=== PATIENT | female | born 1995 ===

== ENCOUNTER 2018-06-12 11:36 | Emergency (ER) | payer SELFPAY ==
[2018-06-12] MEDS ORDERED: Sodium Chloride 0.9% 10 ML Syringe FLUSH PRN ×2 (12:11→14:32)
[2018-06-12] MEDS ORDERED: Ondansetron 4 MG/2 ML SDV IVPUSH ONE (12:11)
--- NOTE | 2018-06-12 12:16 | EDM.PDOC ---
ED HPI GENERAL MEDICAL PROBLEM - General Chief Complaint: Abdominal Pain Stated Complaint: ABDOMINAL PAIN Time Seen by Provider: 06/12/18 12:04 Source of Information: Reports: Patient History Limitations: Reports: No Limitations - History of Present Illness INITIAL COMMENTS - FREE TEXT/NARRATIVE: Patient is a 22-year-old female presents ED complaining of lower abdominal pain described as a crampy sensation rated a 7 out of 10. Pain is worsened with eating and also sitting up. She's had issues with passing stool over the past few days. Increased flatulence noted as well. She states with sitting she can only stay stationary for a short period of time. Has to get up and walk and eventually the pain will go away but only to come back. Predominantly the point of maximal pain is to the right lower quadrant. She's been mildly nauseated at times with no emesis. No diarrhea. No blood within her stool. She states with having a bowel movement she does have to strain more than usual. Appetite is poor but diet has significantly changed since moving to [place] from [facility] for one semester of college. She's been eating a lot more noodles and white sauce. Last menstrual cycle was May 16. She has not been sexually active. She has noticed some increased white discharge from her vagina with no bleeding present. Denies any dysuria and/or hematuria. No fever noted. No back pain. No other complaints. Lower Abdominal Pain Score (Numeric/FACES): 7 - Related Data Allergies Allergy/AdvReac Type Severity Reaction Status Date / Time No Known Allergies Allergy Verified 06/12/18 11:59 Home Meds: Home Meds . [No Known Home Meds] 06/12/18 [History] Past Medical History - Past Health History Medical/Surgical History: Denies Medical/Surgical History Social & Family History - Family History Family Medical History: Noncontributory - Tobacco Use Smoking Status *Q: Never Smoker - Caffeine Use Caffeine Use: Reports: None - Recreational Drug Use Recreational Drug Use: No ED ROS GENERAL - Review of Systems Review Of Systems: See Below Constitutional: Reports: Decreased Appetite. Denies: Fever, Chills Respiratory: Reports: No Symptoms Cardiovascular: Reports: No Symptoms GI/Abdominal: Reports: Abdominal Pain, Constipation, Decreased Appetite, Distension, Flatus, Nausea. Denies: Black Stool, Bloody Stool, Diarrhea, Hematemesis, Hematochezia, Melena, Vomiting : Reports: Discharge. Denies: Dysuria, Flank Pain, Frequency, Hematuria, Irregular Menses, Pain, Urgency Musculoskeletal: Reports: No Symptoms Skin: Reports: No Symptoms ED EXAM, GI/ABD - Physical Exam Exam: See Below Exam Limited By: No Limitations General Appearance: Alert, WD/WN, No Apparent Distress Ears: Hearing Grossly Normal Nose: Normal Inspection Throat/Mouth: Normal Voice, No Airway Compromise Neck: Normal Inspection, Supple Respiratory/Chest: No Respiratory Distress, Lungs Clear, Normal Breath Sounds, No Accessory Muscle Use, Chest Non-Tender Cardiovascular: Normal Peripheral Pulses, Regular Rate, Rhythm GI/Abdominal Exam: Normal Bowel Sounds, Soft, No Organomegaly, No Distention, Tender (To the right and left lower quadrant more probably noted on the McBurney 's point with palpation. No Medrano sign. Also some slight discomfort noted to the suprapubic region as well. Very mild.) Back Exam: Normal Inspection. No: CVA Tenderness (L), CVA Tenderness (R) Extremities: Normal Inspection, Normal Range of Motion, Non-Tender, No Pedal Edema, Normal Capillary Refill Neurological: Alert, Oriented, CN II-XII Intact, Normal Cognition Psychiatric: Normal Affect, Normal Mood Skin Exam: Warm, Dry, Intact, Normal Color, No Rash Course - Vital Signs Last Recorded V/S: Last Vital Signs Temp 98.5 F 06/12/18 11:59 Pulse 76 06/12/18 11:59 Resp 18 06/12/18 11:59 BP 114/74 06/12/18 11:59 Pulse Ox 100 06/12/18 11:59 - Orders/Labs/Meds Orders: Active Orders 24 hr Category Date Time Status Peripheral IV Care [RC] . DIRECTED Care 06/12/18 12:11 Active Abdomen 2V AP Flat Upright [CR] Stat Exams 06/12/18 12:11 Taken HCG QUALITATIVE,URINE [URCHEM] Stat Lab 06/12/18 13:14 Ordered WET PREP [MYC] Stat Lab 06/12/18 13:26 Ordered Peripheral IV Insertion Adult [OM.PC] Routine Oth 06/12/18 12:11 Ordered Labs: Laboratory Tests 06/12/18 06/12/18 06/12/18 Range/Units 12:11 12:12 13:10 WBC 10.16 H (3.98-10.04) K/mm3 RBC 4.23 (3.98-5.22) M/mm3 Hgb 11.9 (11.2-15.7) gm/L Hct 35.6 (34.1-44.9) % MCV 84.2 (79.4-94.8) fl MCH 28.1 (25.6-32.2) pg MCHC 33.4 (32.2-35.5) g/dl RDW Std Deviation 38.6 (36.4-46.3) fL Plt Count 369 (182-369) K/mm3 MPV 9.0 L (9.4-12.3) fl Neutrophils % (Manual) 58 (40-60) % Band Neutrophils % 0 (0-10) % Lymphocytes % (Manual) 35 (20-40) % Atypical Lymphs % 0 % Monocytes % (Manual) 6 (2-10) % Eosinophils % (Manual) 1 (0.7-5.8) % Basophils % (Manual) 0 L (0.1-1.2) Platelet Estimate Adequate RBC Morph Comment Normal Sodium 136 (136-145) mEq/L Potassium 3.7 (3.5-5.1) mEq/L Chloride 103 (98-107) mEq/L Carbon Dioxide 29 (21-32) mEq/L Anion Gap 7.7 (5-15) BUN 9 (7-18) mg/dL Creatinine 0.9 (0.55-1.02) mg/dL Est Cr Clr Drug Dosing 78.20 mL/min Estimated GFR (MDRD) > 60 (>60) mL/min BUN/Creatinine Ratio 10.0 L (14-18) Glucose 89 (74-106) mg/dL Calcium 8.6 (8.5-10.1) mg/dL Total Bilirubin 0.4 (0.2-1.0) mg/dL AST 22 (15-37) U/L ALT 27 (14-59) U/L Alkaline Phosphatase 67 (46-116) U/L C-Reactive Protein 0.6 (<1.0) mg/dL Total Protein 7.9 (6.4-8.2) g/dl Albumin 4.0 (3.4-5.0) g/dl Globulin 3.9 gm/dL Albumin/Globulin Ratio 1.0 (1-2) Urine Color Yellow (Yellow) Urine Appearance Clear (Clear) Urine pH 7.0 (5.0-8.0) Ur Specific [place] 1.015 (1.005-1.030) Urine Protein Negative (Negative) Urine Glucose (UA) Negative (Negative) Urine Ketones Negative (Negative) Urine Occult Blood Negative (Negative) Urine Nitrite Negative (Negative) Urine Bilirubin Negative (Negative) Urine Urobilinogen 0.2 (0.2-1.0) Ur Leukocyte Esterase Negative (Negative) Urine RBC Not seen (0-5) /hpf Urine WBC 0-5 (0-5) /hpf Ur Epithelial Cells 5-10 H (0-5) /hpf Urine Bacteria Many H (FEW) /hpf Urine Mucus Not seen (FEW) /hpf Urine HCG, Qual (NEGATIVE) C trachomatis DNA (PCR) N gonorrhoeae DNA (PCR) 06/12/18 06/12/18 Range/Units 13:14 13:26 WBC (3.98-10.04) K/mm3 RBC (3.98-5.22) M/mm3 Hgb (11.2-15.7) gm/L Hct (34.1-44.9) % MCV (79.4-94.8) fl MCH (25.6-32.2) pg MCHC (32.2-35.5) g/dl RDW Std Deviation (36.4-46.3) fL Plt Count (182-369) K/mm3 MPV (9.4-12.3) fl Neutrophils % (Manual) (40-60) % Band Neutrophils % (0-10) % Lymphocytes % (Manual) (20-40) % Atypical Lymphs % % Monocytes % (Manual) (2-10) % Eosinophils % (Manual) (0.7-5.8) % Basophils % (Manual) (0.1-1.2) Platelet Estimate RBC Morph Comment Sodium (136-145) mEq/L Potassium (3.5-5.1) mEq/L Chloride (98-107) mEq/L Carbon Dioxide (21-32) mEq/L Anion Gap (5-15) BUN (7-18) mg/dL Creatinine (0.55-1.02) mg/dL Est Cr Clr Drug Dosing mL/min Estimated GFR (MDRD) (>60) mL/min BUN/Creatinine Ratio (14-18) Glucose (74-106) mg/dL Calcium (8.5-10.1) mg/dL Total Bilirubin (0.2-1.0) mg/dL AST (15-37) U/L ALT (14-59) U/L Alkaline Phosphatase (46-116) U/L C-Reactive Protein (<1.0) mg/dL Total Protein (6.4-8.2) g/dl Albumin (3.4-5.0) g/dl Globulin gm/dL Albumin/Globulin Ratio (1-2) Urine Color (Yellow) Urine Appearance (Clear) Urine pH (5.0-8.0) Ur Specific [place] (1.005-1.030) Urine Protein (Negative) Urine Glucose (UA) (Negative) Urine Ketones (Negative) Urine Occult Blood (Negative) Urine Nitrite (Negative) Urine Bilirubin (Negative) Urine Urobilinogen (0.2-1.0) Ur Leukocyte Esterase (Negative) Urine RBC (0-5) /hpf Urine WBC (0-5) /hpf Ur Epithelial Cells (0-5) /hpf Urine Bacteria (FEW) /hpf Urine Mucus (FEW) /hpf Urine HCG, Qual Negative (NEGATIVE) C trachomatis DNA (PCR) Not detected N gonorrhoeae DNA (PCR) Not detected Meds: Medications Discontinued Medications Generic Name Dose Route Start Last Admin Trade Name Freq PRN Reason Stop Dose Admin Diatrizoate Meglum/Diatrizoate Sod 120 ml 06/12/18 14:13 06/12/18 15:08 Gastrografin 37% PO 06/12/18 14:14 90 ml ONETIME ONE Administration Iopamidol 100 ml 06/12/18 14:32 06/12/18 15:08 Isovue-300 (61%) IVPUSH 06/12/18 14:33 100 ml ONETIME ONE Administration Magnesium Citrate 296 ml 06/12/18 15:51 06/12/18 16:07 Citrate Of Magnesia PO 06/12/18 15:52 296 ml ONETIME ONE Administration Ondansetron HCl 4 mg 06/12/18 12:11 06/12/18 12:53 Zofran IVPUSH 06/12/18 12:12 4 mg ONETIME ONE Administration Sodium Chloride 10 ml 06/12/18 12:11 08/30/18 12:53 Saline Flush FLUSH 10 ml ASDIRECTED PRN Administration Keep Vein Open Sodium Chloride 10 ml 06/12/18 14:32 06/12/18 15:08 Saline Flush FLUSH 10 ml ONETIME PRN Administration KEEP VEIN OPEN - Re-Assessments/Exams Free Text/Narrative Re-Assessment/Exam: Patient has pain to the right and left lower quadrant of the abdomen increased with palpation. More predominant on the right lower quadrant along McBurney's point. She is mildly nauseated. Appetite is poor. No documented fever. Some constipation noted. No diarrhea or blood in her stool. No pain in urination although there is some abnormal vaginal discharge. She has not been sexually active. Last menstrual cycle was May 16. She is on no meds currently. Initial labs and studies will include: CBC, chem 14, CRP, UA, hCG, 2 view of the abdomen, and will obtain a wet prep after vaginal examination. I have ordered G/C as well. Labs reviewed: CBC essentially normal. Chemistry panel was essentially normal as well. CRP normal. Urine hCG negative. UA, wet prep, and GC/Chlamydia are pending. X-ray of the abdomen reviewed with Dr. Manning with findings concerning for dilated large bowel. Increased stool pattern noted as well. Will order CT of the abdomen and pelvis with IV and oral contrast. Wet prep came with no concerning findings. UA no infection present. GC chlamydia: Negative. CT abdomen and pelvis Technique: Multiple axial sections were obtained from above the dome of the diaphragm inferiorly through the pubic symphysis. Intravenous and oral contrast was utilized. Comparison: No prior CT abdomen or pelvis study. Findings: Visualized lung bases are clear. Liver shows no focal parenchymal abnormality. Spleen appears within normal limits. Adrenal glands show no nodule. Pancreas is within normal limits. Gallbladder contains no calcified gallstones. Kidneys show symmetric contrast enhancement without hydronephrosis or mass. Aorta shows no aneurysmal dilatation. No retroperitoneal adenopathy or mesenteric abnormalities are seen. Appendix is seen and is normal in size. No pelvic mass or adenopathy is seen. No free fluid or inflammatory change is seen. No bowel dilatation is identified. Bone window settings were reviewed which appear within normal limits for the patient's age. Impression: 1. No abnormality is identified on CT study of the abdomen and pelvis. Reassessment, patient is resting comfortably in bed. Minimal complaints. VSS. Discussed results of the labs and CT study with the patient. Do not have clear etiology for the pain. Suspect the pain is associated to being constipated with diet changes and history of BM changes. I have discharged the patient home with a bottle of mag citrate. The patient remained hemodynamically stable while under my care in the E.D. I discussed the concerning symptoms for which to returnto the E.D. with the patient. The patient verbalized understanding. All questions were answered. Departure - Departure Time of Disposition: 15:50 Disposition: Home, Self-Care 01 Condition: Good Clinical Impression: Abdominal pain Qualifiers: Abdominal location: right lower quadrant Qualified Code(s): R10.31 - Right lower quadrant pain Constipated Qualifiers: Constipation type: unspecified constipation type Qualified Code(s): K59.00 - Constipation, unspecified - Discharge Information *PRESCRIPTION DRUG MONITORING PROGRAM REVIEWED*: Not Applicable *COPY OF PRESCRIPTION DRUG MONITORING REPORT IN PATIENT ALEM: Not Applicable Instructions: High-Fiber Diet, Constipation, Adult, Abdominal Pain, Adult, Easy -to-Read, Fecal Impaction, Probiotics Referrals: PCP,None [Primary Care Provider] - Forms: ED Department Discharge Additional Instructions: CT the abdomen and pelvis were essentially normal. Laceration central normal as well. On CT there appears to be increased stool pattern suggesting he may be constipated. Thus will have you take MiraLAX one capful every day with juice and drinking plenty of water. Increase the fiber in your diet. Upon returning home take half bottle of mag citrate. Take the other half tomorrow morning. Will have you take Colace 100 mg twice a day for the next 5 days as well. This will hopefully facilitate a bowel movement and clean your GI tract out. Please follow up with primary care provider first part of next week as needed. Return to ED if he developed any new or worsening symptoms. - My Orders Last 24 Hours: My Active Orders 06/12/18 12:11 Peripheral IV Care [RC] . DIRECTED Abdomen 2V AP Flat Upright [CR] Stat Peripheral IV Insertion Adult [OM.PC] Routine 06/12/18 13:14 HCG QUALITATIVE,URINE [URCHEM] Stat 06/12/18 13:26 WET PREP [MYC] Stat - Assessment/Plan Last 24 Hours: My Active Orders 06/12/18 12:11 Peripheral IV Care [RC] . DIRECTED Abdomen 2V AP Flat Upright [CR] Stat Peripheral IV Insertion Adult [OM.PC] Routine 06/12/18 13:14 HCG QUALITATIVE,URINE [URCHEM] Stat 06/12/18 13:26 WET PREP [MYC] Stat
[2018-06-12] MEDS ORDERED: Diatrizoate Meglumine/Diatrizoate Sodium 37% 120 ML Bottle PO ONE (14:13)
[2018-06-12] MEDS ORDERED: Iopamidol 612 MG/ML 100 ML Bottle IVPUSH ONE (14:32)
[2018-06-12 15:05] LABS: C. TRACHOMATIS BY PCR NOT DETECTED; N. GONORRHOEAE BY PCR NOT DETECTED
--- NOTE | 2018-06-12 15:45 | CT ---
CT abdomen and pelvis Technique: Multiple axial sections were obtained from above the dome of the diaphragm inferiorly through the pubic symphysis. Intravenous and oral contrast was utilized. Comparison: No prior CT abdomen or pelvis study. Findings: Visualized lung bases are clear. Liver shows no focal parenchymal abnormality. Spleen appears within normal limits. Adrenal glands show no nodule. Pancreas is within normal limits. Gallbladder contains no calcified gallstones. Kidneys show symmetric contrast enhancement without hydronephrosis or mass. Aorta shows no aneurysmal dilatation. No retroperitoneal adenopathy or mesenteric abnormalities are seen. Appendix is seen and is normal in size. No pelvic mass or adenopathy is seen. No free fluid or inflammatory change is seen. No bowel dilatation is identified. Bone window settings were reviewed which appear within normal limits for the patient's age. Impression: 1. No abnormality is identified on CT study of the abdomen and pelvis. Diagnostic code #1
[2018-06-12] MEDS ORDERED: Magnesium Citrate Solution 296 ML Bottle PO ONE (15:51)
--- NOTE | 2018-06-13 12:09 | CR ---
Abdomen: Supine and upright views of the abdomen were obtained. Comparison: No previous abdominal x-ray. Findings: Bowel gas pattern appears within normal limits. No abnormal calcifications or soft tissue abnormality is seen. No free air is seen. Bony structures are unremarkable. Impression: 1. Nothing acute is seen on two-view abdominal x-ray. Diagnostic code #1
== END 2018-06-12 16:11 | disposition home or self-care (01) ==
LOC: JD.ED 11:36
DX: K59.00 Constipation, unspecified (principal)
CPT/HCPCS: 36415; 74019; 74177; 80053; 81001; 81025; 85007; 85027; 86140; 87210; 87491; 87591; 87808; 96374; 99285; A9270; J2405; J7050; Q9963; Q9967